=== PATIENT | male | born 1970 | race Caucasian/White ===

== ENCOUNTER → 2021-02-17 | Day surgery (SDC) | payer MEDICARE, OTHER ==
[~2021-02-17] VITALS: Ht 195.6 cm; Wt 133.6 kg
[~2021-02-17] MED LIST: ALDACTONE25 MG PO; ASCORBIC ACID500 MG PO; ASPIRIN CHEWABL81 MG PO; ATIVAN2 MG PO; BASAGLAR K100 UNIT/1 SC; BUSPIRONE HCL15 MG PO; CATAPRES0.3 MG PO; CYMBALTA60 MG PO; EFFIENT10 MG PO; ELAVIL50 MG PO; FEOSOL325 MG PO; FISH OIL 1,0001 EAC1 PO; FLONASE ALLER15.8 ML; HUMALOG100 UNIT/3 SC; ISMO20 MG PO; ISOSORBIDE MONO30 MG PO; KEFLEX500 MG PO; LIPITOR80 MG PO; LISINOPRIL-HCT1 EAC1 PO; LOPRESSOR50 MG PO; MELATONIN5 M2 PO; METRONIDAZOLE500 MG PO; NEURONTIN300 MG PO; NORCO 5-325 TA1 EACH PO; NOVOLIN R100 UNIT/M SC; OS-CAL500 MG PO; OZEMPIC1 MG/0.75 SC; PHENERGAN25 M1 PO; PRINIVIL20 MG PO; PROBIOTIC1 EAC1 PO; PROTONIX 40MG T40 MG PO; SYMBICORT 80-10.2 GM INH; TOPROL XL 50 MG50 MG PO; TRAZODONE HCL150 MG PO; TRESIBA FL200 UNIT/1 SC; TRULICITY0.75 MG/0. SC; VALACYCLOVIR500 MG PO; VENTOLIN HFA IN18 GM PO; ZOFRAN4 MG PO
[2021-02-17 08:41] LABS: HCT 40.2 % (42.0-52.0); HGB 13.5 g/dl (13.2-18.0); MCHC 33.6 g/dL (32.0-36.0); MCV 89.3 fL (78.0-100.0); MPV 10.4 fL (6.0-9.5); RBC 4.5 M/uL (4.70-6.00); RDW 14.1 % (11.5-14.0)
[2021-02-17 09:01] LABS: ALBUMIN 3.4 g/dL (3.4-5.0); BILIRUBIN - TOTAL 0.3 mg/dL (0.2-1.0); BUN/CREAT RATIO (CALC) 21.5 RATIO; CREATININE 1.21 mg/dL (0.67-1.17); GLOBULIN (CALCULATION) 3.8 g/dL; POTASSIUM 4.4 mmol/L (3.5-5.1); TOTAL PROTEIN 7.2 g/dL (6.4-8.2)
== END | disposition home or self-care (01) ==
LOC: FAS 08:07
PROVIDERS: Surgery
DX: K29.50 Unspecified chronic gastritis without bleeding (principal); D64.9 Anemia, unspecified; I45.2 Bifascicular block; K21.9 Gastro-esophageal reflux disease without esophagitis; L98.9 Disorder of the skin and subcutaneous tissue, unspecified; K76.0 Fatty (change of) liver, not elsewhere classified; A63.0 Anogenital (venereal) warts
CPT/HCPCS: 36415; 80053; 93005; J2250; J2405; J2704; J3010; J7120

== ENCOUNTER 2022-02-22 14:30 | Emergency (ER) | payer MEDICARE, OTHER ==
[2022-02-22 15:55] LABS: BASOPHIL 0.4 % (0-2); EOSINOPHIL 3.3 % (0-5); HCT 36.5 % (42.0-52.0); HGB 11.4 g/dl (13.2-18.0); LYMPHOCYTE 29.8 % (15-48); MCH 27.3 pg (25.0-31.0); MCHC 31.2 g/dL (32.0-36.0); MCV 87.5 fL (78.0-100.0); MONOCYTE 6.8 % (0-12); MPV 9.9 fL (6.0-9.5); NEUTROPHIL 58.7 % (41-80); NRBC 0; PLT 164 K/uL (150-400); RBC 4.17 M/uL (4.70-6.00); RDW 19.2 % (11.5-14.0)
[2022-02-22 16:10] LABS: BILIRUBIN NEGATIVE (NEGATIVE); BLOOD 1+ Ery/uL (NEGATIVE); CLARITY CLEAR (CLEAR); COLOR YELLOW (YELLOW); GLUCOSE (U) NORMAL (NORMAL); LEUKOCYTES NEGATIVE Leu/uL (NEGATIVE); NITRITE NEGATIVE (NEGATIVE); PROTEIN 2+ mg/dL (NEGATIVE); SPECIFIC GRAVITY 1.025 (1.001-1.030); UROBILINOGEN 0.2 mg/dL (0.2-1.0); pH 5.5 (5.0-9.0)
[2022-02-22 16:13] LABS: AMPHETAMINES NEGATIVE (NEGATIVE); BARBITURATES NEGATIVE (NEGATIVE); ECSTASY (MDMA) NEGATIVE (NEGATIVE); MARIJUANA (THC) NEGATIVE (NEGATIVE); METHADONE NEGATIVE (NEGATIVE); OPIATES NEGATIVE (NEGATIVE); OXYCODONE POSITIVE (NEGATIVE)
[2022-02-22 16:17] LABS: URINARY RBC RARE
[2022-02-22 16:25] LABS: BUN 41 mg/dL (7-18); BUN/CREAT RATIO (CALC) 25.8 RATIO; CHLORIDE 105 mmol/L (98-107); CO2 (BICARBONATE) 29 mmol/L (21-32); CREATININE 1.59 mg/dL (0.67-1.17); GLUCOSE 220 mg/dL (74-106); POTASSIUM 5.5 mmol/L (3.5-5.1)
== END 2022-02-22 19:21 | disposition home or self-care (01) ==
LOC: FER 14:30
PROVIDERS: Emergency Medicine
DX: R44.1 Visual hallucinations (principal); Z20.822 Contact with and (suspected) exposure to COVID-19
CPT/HCPCS: 36415; 70450; 71046; 80048; 80305; 81001; 84443; 85025; G0480; U0002